=== PATIENT | male | born 1955 | race Caucasian/White ===

== ENCOUNTER 2016-10-24 09:35 | Emergency (ER) | payer OTHER ==
[~2016-10-24] VITALS: Ht 180.3 cm; Wt 73.5 kg
[~2016-10-24 09:35] MED LIST: AMLO5TAB4 PO; APIX5TAB PO; ASPI-482 PO; CLOP75TA PO; DOCU-27 PO; GABA-586 PO; LEVO500T8 PO; METH-38 PO; OXYC-250 PO; POTA20TA12 PO; PREG50CA PO; TAMS0.4C97 PO; VENL37.56 PO; VENTOLIN HFA18 GM IH
[2016-10-24] MEDS ORDERED: OXYCODONE/APAP 5/325 TABLET. PO ONE (11:15)
--- NOTE | 2016-10-24 12:32 | RAD ---
Right lower extremity arterial ultrasound, 10/24/2016: History: Right foot throbbing, known peripheral vascular disease with graft Duplex evaluation of the major arteries was performed including grayscale, color-flow and spectral Doppler analysis. The common femoral artery is widely patent and demonstrates a biphasic Doppler waveform. The patient's [place] femoral artery is occluded in the upper thigh. There is an in situ saphenous vein graft. The proximal anastomosis is widely patent. The graft is widely patent down through its junction with the posterior tibial artery. There are biphasic Doppler waveforms in the graft. The right posterior tibial artery is patent demonstrating a good amplitude biphasic Doppler waveform distally. The peak systolic velocity is 152 cm/s. A patent anterior tibial artery is seen with a weak monophasic Doppler waveform. The dorsalis pedis artery is patent with a biphasic Doppler waveform. The peak systolic velocity at this level is 27 cm/s. IMPRESSION: 1. Occlusion of the patient's [place] superficial femoral artery. 2. Patent in situ saphenous vein graft extending from the common femoral artery down to the posterior tibial artery. 3. Patent posterior tibial, anterior tibial and dorsalis pedis arteries.
[2016-10-24 12:45] VITALS: BP 162/109
[2016-10-24] MEDS ORDERED: OXYC-323 PO (13:02)
--- NOTE | 2016-10-24 13:02 | PHYS DOC ---
Past Medical History Past Medical History: DVT, Hypertension, Other Additional Past Medical Histor: PVD, PE Past Surgical History: Other Additional Past Surgical Histo: low back surgery Alcohol Use: Occasionally Drug Use: None Adult General Chief Complaint Chief Complaint: MULTIPLE COMPLAINTS HPI HPI Patient is a 61 year old male who presents with right foot numbness and swelling. Patient reports she has been having symptoms over the past year. He came in today because of throbbing worse than usual. Patient does have history of PVD, and has had right femoral bypass. He does take Eliquis. He has not taken anything for pain today. No trauma or other inciting/aggravating event. Review of Systems Review of Systems Constitutional: Denies fever or chills Eyes: Denies change in visual acuity or eye pain HENT: Denies nasal congestion or sore throat Respiratory: Denies cough or shortness of breath Cardiovascular: Denies chest pain GI: Denies abdominal pain, nausea, vomiting, bloody stools or diarrhea : Denies dysuria or hematuria Musculoskeletal: R foot pain/numb/swelling Integument: Denies rash or skin lesions Neurologic: Denies headache, focal weakness or sensory changes Current Medications Current Medications Current Medications Medications (Trade) Dose Ordered Sig/Pamela Start Time Stop Time Status Last Admin Dose Admin Oxycodone/ Acetaminophen (Percocet 5/325) 2 tab 1X ONCE 10/24/16 11:15 10/24/16 11:16 DC 10/24/16 11:19 2 TAB Allergies Allergies Allergies Coded Allergies Type Severity Reaction Last Updated Verified No Known Drug Allergies 06/22/16 No Physical Exam Physical Exam Constitutional: Well developed, well nourished, no acute distress, non-toxic appearance HENT: Normocephalic, atraumatic, bilateral external ears normal Eyes: EOMI, conjunctiva normal, no discharge Neck: Normal range of motion, no stridor Cardiovascular: Heart rate normal, regular rhythm, no murmur Lungs & Thorax: Bilateral breath sounds clear to auscultation Abdomen: Bowel sounds normal, soft, non-distended, no TTP Skin: Warm, dry, no erythema, no rash Extremities: R foot without swelling compared to L; no erythema or skin lesion; R foot with brisk cap refill (same as L); minimally palpable DP pulse, symmetric b/l; well-healed scar to medial RLE Neurologic: Alert and oriented X 3 Current Patient Data Vital Signs Vital Signs Date Time Temp Pulse Resp B/P Pulse Ox O2 Delivery O2 Flow Rate FiO2 10/24/16 12:45 69 16 162/109 95 Room Air 10/24/16 10:03 98.3 98.3 EKG EKG [] Radiology/Procedures Radiology/Procedures RLE Arterial US: Right lower extremity arterial ultrasound, 10/24/2016: History: Right foot throbbing, known peripheral vascular disease with graft Duplex evaluation of the major arteries was performed including grayscale, color-flow and spectral Doppler analysis. The common femoral artery is widely patent and demonstrates a biphasic Doppler waveform. The patient's [place] femoral artery is occluded in the upper thigh. There is an in situ saphenous vein graft. The proximal anastomosis is widely patent. The graft is widely patent down through its junction with the posterior tibial artery. There are biphasic Doppler waveforms in the graft. The right posterior tibial artery is patent demonstrating a good amplitude biphasic Doppler waveform distally. The peak systolic velocity is 152 cm/s. A patent anterior tibial artery is seen with a weak monophasic Doppler waveform. The dorsalis pedis artery is patent with a biphasic Doppler waveform. The peak systolic velocity at this level is 27 cm/s. IMPRESSION: 1. Occlusion of the patient's [place] superficial femoral artery. 2. Patent in situ saphenous vein graft extending from the common femoral artery down to the posterior tibial artery. 3. Patent posterior tibial, anterior tibial and dorsalis pedis arteries. Course & Med Decision Making Course & Med Decision Making Pertinent Labs and Imaging studies reviewed. (See chart for details) Patient is 61-year-old male who presents with right foot pain and numbness. No swelling noted on exam. Has had symptoms for a year. Refill and DP pulses symmetrical bilaterally. Oral pain medication ordered for pain control. Right lower extremity arterial ultrasound ordered to ensure pain see above arterial blood supply. Imaging results as above. Discussed results with patient. Discharged with prescription for pain medication, instructions for close follow- up with PCP, return precautions. Dragon Disclaimer Dragon Disclaimer This electronic medical record was generated, in whole or in part, using a voice recognition dictation system. Departure Departure Impression: Primary Impression: Right foot pain Disposition: 01 HOME, SELF-CARE Condition: STABLE Referrals: CAROLINA TEJADA MD (PCP) Patient Instructions: Peripheral Vascular Disease Additional Instructions: Thank you for allowing us to provide care today in the Emergency Department. Take the provided medication as directed. Use caution when taking the pain medication as it can make you drowsy. Schedule a follow up appointment with your primary care doctor as soon as possible. Return promptly to the Emergency Department if you develop any new or concerning symptoms. Scripts Oxycodone/Apap 5-325 (Percocet 5-325 Mg Tablet)1 Each Tablet1 Tab PO PRN Q6HRS PRN PAIN #20 TAB Ref 0 Prov:PRETTY RETANA MD 10/24/16 PRETTY RETANA MD Oct 24, 2016 13:02
== END 2016-10-24 13:15 | disposition home or self-care (01) ==
LOC: ER 09:35
DX: M79.671 Pain in right foot (principal); M79.89 Other specified soft tissue disorders; R20.0 Anesthesia of skin; I10 Essential (primary) hypertension; I73.9 Peripheral vascular disease, unspecified; Z86.711 Personal history of pulmonary embolism; Z86.718 Personal history of other venous thrombosis and embolism
CPT/HCPCS: 93923; 99284-25